=== PATIENT | female | born 1950 | race Two or more races ===

== ENCOUNTER 2019-05-12 01:57 | Inpatient (IN) | payer OTHER, MEDICAID ==
[~2019-05-12] VITALS: Ht 154.9 cm; Wt 52.2 kg
[2019-05-12] MEDS ORDERED: ACETAMINOPHEN 500 MG TABLET PO ONE (02:30)
[2019-05-12] MEDS ORDERED: IV NORMAL SALINE 1000ML BAG 1,000 ML IV ONE (02:30)
[2019-05-12 02:47] LABS: BASO % 0 % (0-3); EOS # 0.2 x10^3/uL (0.0-0.7); EOS % 3 % (0-3); HEMATOCRIT 34.3 % (36.0-47.0); HEMOGLOBIN 11.5 g/dL (12.0-15.5); LYMPH # 1.6 x10^3/uL (1.0-4.8); LYMPH % 34 % (24-48); MEAN CORPUSCULAR HEMOGLOBIN 32 pg (25-35); MEAN CORPUSCULAR HGB CONC 33 g/dL (31-37); MEAN CORPUSCULAR VOLUME 94 fL (79-100); MONO # 0.1 x10^3/uL (0.0-1.1); MONO % 2 % (0-9); NEUT # 2.8 x10^3/uL (1.8-7.7); NEUT % 60 % (31-73); PLATELET COUNT 192 x10^3/uL (140-400); RED BLOOD COUNT 3.64 x10^6/uL (3.50-5.40); RED CELL DISTRIBUTION WIDTH 13.4 % (11.5-14.5); WHITE BLOOD COUNT 4.7 x10^3/uL (4.0-11.0)
[2019-05-12 02:57] LABS: BILIRUBIN,URINE NEGATIVE (NEG); CLARITY,URINE CLEAR; COLOR,URINE YELLOW; NITRITE,URINE NEGATIVE (NEG); PROTEIN,URINE NEGATIVE (NEG-TRACE); UROBILINOGEN,URINE 0.2 mg/dL (0.2 mg/dL)
[2019-05-12 02:59] LABS: PROTHROMBIN TIME PATIENT 13.5 SEC (11.7-14.0)
[2019-05-12 03:06] LABS: CALCIUM 8.8 mg/dL (8.5-10.1); CREATININE 0.9 mg/dL (0.6-1.0); GFR 61.9; POTASSIUM 3.8 mmol/L (3.5-5.1)
--- NOTE | 2019-05-12 03:17 | PHYS DOC ---
Past Medical History Past Medical History: No Pertinent History, UTI Past Surgical History: No Surgical History Additional Information: Nonsmoker Alcohol Use: None Drug Use: None Adult General Chief Complaint Chief Complaint: CHEST PAIN HPI HPI 69-year-old female presents with report of left flank pain and left sided chest pain with associated dizziness and chills �2 hours. Reports history of recent antibiotics for urinary tract infection. Patient also reports some nonproductive cough. Denies known trauma. Denies nausea or vomiting. Review of Systems Review of Systems Constitutional: Denies fever or chills Eyes: Denies redness or eye pain HENT: Denies nasal congestion or sore throat Respiratory: Denies cough or shortness of breath Cardiovascular: Reports chest pain; denies palpitations GI: Denies abdominal pain, nausea, or vomiting : Denies dysuria or hematuria Musculoskeletal: Reports left flank pain; denies joint pain Integument: Denies rash or skin lesions Neurologic: Denies headache, focal weakness or sensory changes Complete systems were reviewed and found to be within normal limits, except as documented in this note. Current Medications Current Medications Current Medications Medications (Trade) Dose Ordered Sig/Carmina Start Time Stop Time Status Last Admin Dose Admin Acetaminophen (Tylenol) 500 mg 1X ONCE 05/12/19 02:30 05/12/19 02:32 DC 05/12/19 02:47 500 MG Sodium Chloride 1,000 ml @ 1,000 mls/hr 1X ONCE 05/12/19 02:30 05/12/19 03:29 DC 05/12/19 02:47 1,000 MLS/HR Allergies Allergies Allergies Coded Allergies Type Severity Reaction Last Updated Verified Penicillins Allergy Unknown 05/12/19 Yes Physical Exam Physical Exam Constitutional: Well developed, well nourished, no acute distress, non-toxic appearance HENT: Normocephalic, atraumatic, oropharynx moist Eyes: Conjunctiva normal, no discharge Neck: Normal range of motion, no tenderness, supple Cardiovascular: Heart rate normal, regular rhythm Lungs & Thorax: Bilateral breath sounds clear to auscultation, no wheezing Abdomen: Soft, no tenderness Skin: Warm, dry, no erythema, no rash Back: No tenderness, left CVA tenderness Extremities: No tenderness, ROM intact, no edema Neurologic: Alert and oriented X 3, no focal deficits noted Psychologic: Affect normal, judgement normal Current Patient Data Vital Signs Vital Signs Date Time Temp Pulse Resp B/P (MAP) Pulse Ox O2 Delivery O2 Flow Rate FiO2 05/12/19 03:03 97 18 142/62 (88) 95 Room Air 05/12/19 01:58 101.4 101.4 Lab Values Laboratory Tests Test 05/12/19 02:15 05/12/19 02:50 White Blood Count 4.7 x10^3/uL (4.0-11.0) Red Blood Count 3.64 x10^6/uL (3.50-5.40) Hemoglobin 11.5 g/dL (12.0-15.5) L Hematocrit 34.3 % (36.0-47.0) L Mean Corpuscular Volume 94 fL (79-100) Mean Corpuscular Hemoglobin 32 pg (25-35) Mean Corpuscular Hemoglobin Concent 33 g/dL (31-37) Red Cell Distribution Width 13.4 % (11.5-14.5) Platelet Count 192 x10^3/uL (140-400) Neutrophils (%) (Auto) 60 % (31-73) Lymphocytes (%) (Auto) 34 % (24-48) Monocytes (%) (Auto) 2 % (0-9) Eosinophils (%) (Auto) 3 % (0-3) Basophils (%) (Auto) 0 % (0-3) Neutrophils # (Auto) 2.8 x10^3/uL (1.8-7.7) Lymphocytes # (Auto) 1.6 x10^3/uL (1.0-4.8) Monocytes # (Auto) 0.1 x10^3/uL (0.0-1.1) Eosinophils # (Auto) 0.2 x10^3/uL (0.0-0.7) Basophils # (Auto) 0.0 x10^3/uL (0.0-0.2) Prothrombin Time 13.5 SEC (11.7-14.0) Prothrombin Time INR 1.1 (0.8-1.1) PTT 28 SEC (24-38) Sodium Level 142 mmol/L (136-145) Potassium Level 3.8 mmol/L (3.5-5.1) Chloride Level 106 mmol/L (98-107) Carbon Dioxide Level 24 mmol/L (21-32) Anion Gap 12 (6-14) Blood Urea Nitrogen 20 mg/dL (7-20) Creatinine 0.9 mg/dL (0.6-1.0) Estimated GFR (Cockcroft-Gault) 61.9 BUN/Creatinine Ratio 22 (6-20) H Glucose Level 99 mg/dL (70-99) Lactic Acid Level 1.6 mmol/L (0.4-2.0) Calcium Level 8.8 mg/dL (8.5-10.1) Magnesium Level 1.7 mg/dL (1.8-2.4) L Total Bilirubin 0.4 mg/dL (0.2-1.0) Aspartate Amino Transferase (AST) 19 U/L (15-37) Alanine Aminotransferase (ALT) 20 U/L (14-59) Alkaline Phosphatase 63 U/L (46-116) Creatine Kinase 119 U/L (26-192) Creatine Kinase MB (Mass) 1.5 ng/mL (0.0-3.6) Creatine Kinase MB Relative Index 1.3 % (0-4) Troponin I Quantitative < 0.017 ng/mL (0.000-0.055) VM-Lmw-H-Type Natriuretic Peptide 238 pg/mL (0-124) H Total Protein 6.5 g/dL (6.4-8.2) Albumin 3.5 g/dL (3.4-5.0) Albumin/Globulin Ratio 1.2 (1.0-1.7) Lipase 116 U/L (73-393) Urine Collection Type Unknown Urine Color Yellow Urine Clarity Clear Urine pH 5.0 Urine Specific [place] 1.015 Urine Protein Negative mg/dL (NEG-TRACE) Urine Glucose (UA) Negative mg/dL (NEG) Urine Ketones (Stick) Negative mg/dL (NEG) Urine Blood Negative (NEG) Urine Nitrite Negative (NEG) Urine Bilirubin Negative (NEG) Urine Urobilinogen Dipstick 0.2 mg/dL (0.2 mg/dL) Urine Leukocyte Esterase Moderate (NEG) Urine RBC 0 /HPF (0-2) Urine WBC >40 /HPF (0-4) Urine Squamous Epithelial Cells Occ /LPF Urine Bacteria Many /HPF (0-FEW) Urine Mucus Slight /LPF Laboratory Tests 05/12/19 02:15 Laboratory Tests 05/12/19 02:15 Microbiology 05/12/19 Blood Culture - Final, Complete 05/12/19 Blood Culture Result 1 (DENISE) - Final, Complete 05/12/19 Antimicrobic Susceptibility - Final, Complete 05/12/19 Urine Culture - Final, Complete 05/12/19 Urine Culture Result 1 (DENISE) - Final, Complete 05/12/19 Antimicrobic Susceptibility - Final, Complete EKG EKG @0206 Sinus tachycardia 109bpm, baseline artifact Radiology/Procedures Radiology/Procedures PROCEDURE: PORTABLE CHEST 1V PORTABLE CHEST 1V Clinical Indication: Weakness, fever. Comparison: Two-view chest April 14, 2019. Findings: The cardiomediastinal silhouette is normal. Lungs are clear. There is no pneumothorax. No pleural effusion is appreciated. No acute bone abnormality. IMPRESSION: No acute cardiopulmonary process. Electronically signed by: Gopal Florentino MD (05/12/2019 3:34 AM) [facility] PROCEDURE: CT ABDOMEN PELVIS WO CONTRAST PQRS Compliance Statement: One or more of the following individualized dose reduction techniques were utilized for this examination: 1. Automated exposure control 2. Adjustment of the mA and/or kV according to patient size 3. Use of iterative reconstruction technique CT ABDOMEN PELVIS WO CONTRAST Clinical Indication: Left flank pain. Comparison: None. Technique: Helical CT imaging of the abdomen and pelvis is performed without IV or oral contrast. Findings: Evaluation of solid organs and bowel is limited without oral and IV contrast, decreasing sensitivity for detection of pathology. Mild atelectasis or scarring in the bilateral lower lobes. Tiny calcified granuloma left lower lobe. Cardiac size is normal. The liver, gallbladder, spleen, pancreas, adrenal glands, and abdominal aorta are normal. There is a right renal cyst that measures up to 5.8 cm. There is a cyst of the upper pole of the left kidney measuring up to 5.2 cm. There is probable cortical scarring in the upper pole of the right kidney. There is no right hydronephrosis. There is mild left hydroureteronephrosis. A ureteral calculus is not identified. Please note noncontrast CT is not sensitive for evaluation of pyelonephritis. Stomach unremarkable. No dilated small bowel. The appendix is normal. Scattered stool in the colon. There is no colon wall thickening. There is no abdominal adenopathy or free fluid. Urinary bladder is normal. Uterus and ovaries unremarkable. No pelvic free fluid. Mild grade 1 anterolisthesis of L4 and L5. IMPRESSION: 1. Mild left hydroureteronephrosis. A ureteral calculus is not identified. Considerations include recently passed calculus, a non-radiopaque calculus, or ascending urinary tract infection. 2. Bilateral renal cysts. Electronically signed by: Gopal Florentino MD (05/12/2019 3:15 AM) [facility] Course & Med Decision Making Course & Med Decision Making Pertinent Labs and Imaging studies reviewed. (See chart for details) Patient presents with left flank pain with radiation to chest and associated dizziness and chills. Patient with history of recent UTI for which she was treated with antibiotics. UA with signs of infection. EKG stable. Labs obtained and posted to chart. Troponin within normal limits. CT abdomen/pelvis with fin dings of hydronephrosis without obstructive stone appreciated. Concern for pyelonephritis. Empiric antibiotics initiated. Chest x-ray without acute process. Magnesium replaced. Patient requiring admission for further evaluation and treatment. Discussed with Dr. Grewal (covering for PCP- Dr. Ho) who is in agreement with admission. Discussed findings and plan with patient and family, who acknowledge understanding and agreement. Dragon Disclaimer Dragon Disclaimer This electronic medical record was generated, in whole or in part, using a voice recognition dictation system. Departure Departure Impression: Primary Impression: Pyelonephritis Additional Impressions: Failure of outpatient treatment Hypomagnesemia Disposition: ADMITTED INPATIENT Admitting Physician: Dulce Grewal (covering for Dr. Ho) Condition: STABLE Referrals: NELIA HO MD (PCP) Problem Qualifiers NELIA TREVIZO DO May 12, 2019 03:17
[2019-05-12 03:18] LABS: ALBUMIN 3.5 g/dL (3.4-5.0); ALBUMIN/GLOBULIN RATIO 1.2 (1.0-1.7); MAGNESIUM 1.7 mg/dL (1.8-2.4); TOTAL BILIRUBIN 0.4 mg/dL (0.2-1.0); TOTAL PROTEIN 6.5 g/dL (6.4-8.2)
[2019-05-12 03:20] LABS: BACTERIA,URINE MANY /HPF (0-FEW); RBC,URINE 0 /HPF (0-2); SQUAMOUS EPITHELIAL CELL,UR OCC /LPF; WBC,URINE >40 /HPF (0-4)
[2019-05-12] MEDS ORDERED: cefTRIAXone IV Push 1 GM VIAL. IVP ONE (03:30)
[2019-05-12] MEDS ORDERED: fentaNYL PF VIAL 100 MCG/2 ML VIAL IV ONE (03:30)
--- NOTE | 2019-05-12 03:37 | RAD ---
PORTABLE CHEST 1V Clinical Indication: Weakness, fever. Comparison: Two-view chest April 14, 2019. Findings: The cardiomediastinal silhouette is normal. Lungs are clear. There is no pneumothorax. No pleural effusion is appreciated. No acute bone abnormality. IMPRESSION: No acute cardiopulmonary process. Electronically signed by: Gopal Florentino MD (05/12/2019 3:34 AM) [facility]
[2019-05-12] MEDS ORDERED: ONDANSETRON PF 4 MG/2 ML VIAL. IV PRN (03:45)
[2019-05-12] MEDS ORDERED: MAGNESIUM SULFATE 2GM 50 ML IV ONE (04:15)
[2019-05-12] MEDS: fentaNYL PF VIAL 100 MCG/2 ML VIAL IV PRN ×2 (06:17→17:51)
--- NOTE | 2019-05-12 06:53 | EKG ---
[facility] [address] [place] [address] Test Date: 2019-05-12 Test Time: 02:06:49 Pat Name: GISELLA KELLEY Department: Room: Gender: F Shift [employer]: : 1950 Requested By: NELIA TREVIZO Order Number: [id number] Reading MD: Measurements Intervals [place] Rate: 109 P: 35 [place]: 176 QRS: -14 QRSD: 80 T: 38 QT: 322 QTc: 435 Interpretive Statements SINUS TACHYCARDIA LEFTWARD AXIS OTHERWISE NORMAL ECG No previous ECG available for comparison
[2019-05-12 07:00] VITALS: BP 98/44
--- NOTE | 2019-05-12 09:58 | PDOC1 ---
History and Physical Date of Admission Date of Admission 05/12/19 Identification/Chief Complaint Chief Complaint flank pain, fever, dysuria Source Source: Caregiver, Chart review, Patient History of Present Illness History of Present Illness She was in the office 05/02 and left a UA and started on Bactrim DS which she finished but came to ER with left flank pain/chest pain and admitted for IV antibiotics and treatment of pyelonephritis. She also complains of a tension type headache and she was in the office the end of March with bronchitis/sinusitis and had a normal CXR then and was treated with doxycycline and prednisone but she is not taking any routine meds Past Medical History Cardiovascular: No pertinent hx Pulmonary: No pertinent hx GI: GERD Heme/Onc: No pertinent hx Hepatobiliary: No pertinent hx Psych: No pertinent hx Rheumatologic: Other (sacroiliitis) Infectious disease: Other ENT: No pertinent hx, Sincusitis Renal/: No pertinent hx Endocrine: No pertinent hx Dermatology: No pertinent hx Grav: 2 Para: 2 Past Surgical History Past Surgical History: No pertinent history Family History Family History: Parent (both are ) Social History Smoke: No ALCOHOL: none Drugs: None Current Problem List Problem List Problems Medical Problems: (1) Hypomagnesemia Status: Acute (2) Pyelonephritis Status: Acute Current Medications Current Medications Current Medications Medications (Trade) Dose Ordered Sig/Carmina Start Time Stop Time Status Last Admin Dose Admin Acetaminophen (Tylenol) 650 mg PRN Q4HRS PRN 05/12/19 03:45 05/13/19 03:44 Ceftriaxone Sodium (Rocephin) 1 gm 1X ONCE 05/12/19 03:30 05/12/19 03:31 DC 05/12/19 03:45 1 GM Fentanyl Citrate (Fentanyl 2ml Vial) 50 mcg PRN Q2HR PRN 05/12/19 03:45 05/12/19 06:17 50 MCG Magnesium Sulfate 50 ml @ 25 mls/hr 1X ONCE 05/12/19 04:15 05/12/19 06:14 DC 05/12/19 06:16 25 MLS/HR Ondansetron HCl (Zofran) 4 mg PRN Q8HRS PRN 05/12/19 03:45 05/13/19 03:44 Sodium Chloride 1,000 ml @ 1,000 mls/hr 1X ONCE 05/12/19 02:30 05/12/19 03:29 DC 05/12/19 02:47 1,000 MLS/HR Allergies Allergies Allergies Coded Allergies Type Severity Reaction Last Updated Verified Penicillins Allergy Unknown 05/12/19 Yes ROS Review of System CONSTITUTIONAL: No fever or chills HEENT: Hx of recent sinobronchitis SKIN: No rash or itching CARDIOVASCULAR: No chest pain, syncope, palpitations, or edema RESPIRATORY: No SOB or cough GASTROINTESTINAL: No nausea, vomiting or abdominal pain, hx of GERD NEUROLOGICAL: band like tension type headache, no focal weakness ENDOCRINE: No cold or heat intolerance GENITOURINARY: see HPI MUSCULOSKELETAL: No back pain or joint pain LYMPHATICS: No enlarged lymph nodes PSYCHIATRIC: No anxiety or depression Physical Exam Physical Exam GEN.: uncomfortable from headache. Alert and oriented. HEENT: Head is normocephalic, atraumatic, no sinus tenderness NECK: Supple. LUNGS: Clear to auscultation, no cough. HEART: RRR, S1, S2 present. Peripheral pulses intact ABDOMEN: Soft, nontender. Positive bowel sounds. : Left flank tenderness, no suprapubic tenderness EXTREMITIES: Without any cyanosis. NEUROLOGIC: Normal speech, normal tone PSYCHIATRIC: Normal affect, normal mood. SKIN: No ulcerations Vitals Vitals Vital Signs Date Time Temp Pulse Resp B/P (MAP) Pulse Ox O2 Delivery O2 Flow Rate FiO2 05/12/19 07:00 98.2 86 18 98/44 (62) 96 Room Air 98.2 Labs Labs Laboratory Tests Test 05/12/19 02:15 05/12/19 02:50 White Blood Count 4.7 x10^3/uL (4.0-11.0) Red Blood Count 3.64 x10^6/uL (3.50-5.40) Hemoglobin 11.5 g/dL (12.0-15.5) Hematocrit 34.3 % (36.0-47.0) Mean Corpuscular Volume 94 fL (79-100) Mean Corpuscular Hemoglobin 32 pg (25-35) Mean Corpuscular Hemoglobin Concent 33 g/dL (31-37) Red Cell Distribution Width 13.4 % (11.5-14.5) Platelet Count 192 x10^3/uL (140-400) Neutrophils (%) (Auto) 60 % (31-73) Lymphocytes (%) (Auto) 34 % (24-48) Monocytes (%) (Auto) 2 % (0-9) Eosinophils (%) (Auto) 3 % (0-3) Basophils (%) (Auto) 0 % (0-3) Neutrophils # (Auto) 2.8 x10^3/uL (1.8-7.7) Lymphocytes # (Auto) 1.6 x10^3/uL (1.0-4.8) Monocytes # (Auto) 0.1 x10^3/uL (0.0-1.1) Eosinophils # (Auto) 0.2 x10^3/uL (0.0-0.7) Basophils # (Auto) 0.0 x10^3/uL (0.0-0.2) Prothrombin Time 13.5 SEC (11.7-14.0) Prothromb Time International Ratio 1.1 (0.8-1.1) Activated Partial Thromboplast Time 28 SEC (24-38) Sodium Level 142 mmol/L (136-145) Potassium Level 3.8 mmol/L (3.5-5.1) Chloride Level 106 mmol/L (98-107) Carbon Dioxide Level 24 mmol/L (21-32) Anion Gap 12 (6-14) Blood Urea Nitrogen 20 mg/dL (7-20) Creatinine 0.9 mg/dL (0.6-1.0) Estimated GFR (Cockcroft-Gault) 61.9 BUN/Creatinine Ratio 22 (6-20) Glucose Level 99 mg/dL (70-99) Lactic Acid Level 1.6 mmol/L (0.4-2.0) Calcium Level 8.8 mg/dL (8.5-10.1) Magnesium Level 1.7 mg/dL (1.8-2.4) Total Bilirubin 0.4 mg/dL (0.2-1.0) Aspartate Amino Transf (AST/SGOT) 19 U/L (15-37) Alanine Aminotransferase (ALT/SGPT) 20 U/L (14-59) Alkaline Phosphatase 63 U/L (46-116) Creatine Kinase 119 U/L (26-192) Creatine Kinase MB (Mass) 1.5 ng/mL (0.0-3.6) Creatine Kinase MB Relative Index 1.3 % (0-4) Troponin I Quantitative < 0.017 ng/mL (0.000-0.055) XK-Zla-B-Type Natriuretic Peptide 238 pg/mL (0-124) Total Protein 6.5 g/dL (6.4-8.2) Albumin 3.5 g/dL (3.4-5.0) Albumin/Globulin Ratio 1.2 (1.0-1.7) Lipase 116 U/L (73-393) Urine Collection Type Unknown Urine Color Yellow Urine Clarity Clear Urine pH 5.0 Urine Specific [place] 1.015 Urine Protein Negative mg/dL (NEG-TRACE) Urine Glucose (UA) Negative mg/dL (NEG) Urine Ketones (Stick) Negative mg/dL (NEG) Urine Blood Negative (NEG) Urine Nitrite Negative (NEG) Urine Bilirubin Negative (NEG) Urine Urobilinogen Dipstick 0.2 mg/dL (0.2 mg/dL) Urine Leukocyte Esterase Moderate (NEG) Urine RBC 0 /HPF (0-2) Urine WBC >40 /HPF (0-4) Urine Squamous Epithelial Cells Occ /LPF Urine Bacteria Many /HPF (0-FEW) Urine Mucus Slight /LPF Laboratory Tests Test 05/12/19 02:15 05/12/19 02:50 White Blood Count 4.7 x10^3/uL (4.0-11.0) Red Blood Count 3.64 x10^6/uL (3.50-5.40) Hemoglobin 11.5 g/dL (12.0-15.5) Hematocrit 34.3 % (36.0-47.0) Mean Corpuscular Volume 94 fL (79-100) Mean Corpuscular Hemoglobin 32 pg (25-35) Mean Corpuscular Hemoglobin Concent 33 g/dL (31-37) Red Cell Distribution Width 13.4 % (11.5-14.5) Platelet Count 192 x10^3/uL (140-400) Neutrophils (%) (Auto) 60 % (31-73) Lymphocytes (%) (Auto) 34 % (24-48) Monocytes (%) (Auto) 2 % (0-9) Eosinophils (%) (Auto) 3 % (0-3) Basophils (%) (Auto) 0 % (0-3) Neutrophils # (Auto) 2.8 x10^3/uL (1.8-7.7) Lymphocytes # (Auto) 1.6 x10^3/uL (1.0-4.8) Monocytes # (Auto) 0.1 x10^3/uL (0.0-1.1) Eosinophils # (Auto) 0.2 x10^3/uL (0.0-0.7) Basophils # (Auto) 0.0 x10^3/uL (0.0-0.2) Prothrombin Time 13.5 SEC (11.7-14.0) Prothromb Time International Ratio 1.1 (0.8-1.1) Activated Partial Thromboplast Time 28 SEC (24-38) Sodium Level 142 mmol/L (136-145) Potassium Level 3.8 mmol/L (3.5-5.1) Chloride Level 106 mmol/L (98-107) Carbon Dioxide Level 24 mmol/L (21-32) Anion Gap 12 (6-14) Blood Urea Nitrogen 20 mg/dL (7-20) Creatinine 0.9 mg/dL (0.6-1.0) Estimated GFR (Cockcroft-Gault) 61.9 BUN/Creatinine Ratio 22 (6-20) Glucose Level 99 mg/dL (70-99) Lactic Acid Level 1.6 mmol/L (0.4-2.0) Calcium Level 8.8 mg/dL (8.5-10.1) Magnesium Level 1.7 mg/dL (1.8-2.4) Total Bilirubin 0.4 mg/dL (0.2-1.0) Aspartate Amino Transf (AST/SGOT) 19 U/L (15-37) Alanine Aminotransferase (ALT/SGPT) 20 U/L (14-59) Alkaline Phosphatase 63 U/L (46-116) Creatine Kinase 119 U/L (26-192) Creatine Kinase MB (Mass) 1.5 ng/mL (0.0-3.6) Creatine Kinase MB Relative Index 1.3 % (0-4) Troponin I Quantitative < 0.017 ng/mL (0.000-0.055) UA-Aws-N-Type Natriuretic Peptide 238 pg/mL (0-124) Total Protein 6.5 g/dL (6.4-8.2) Albumin 3.5 g/dL (3.4-5.0) Albumin/Globulin Ratio 1.2 (1.0-1.7) Lipase 116 U/L (73-393) Urine Collection Type Unknown Urine Color Yellow Urine Clarity Clear Urine pH 5.0 Urine Specific [place] 1.015 Urine Protein Negative mg/dL (NEG-TRACE) Urine Glucose (UA) Negative mg/dL (NEG) Urine Ketones (Stick) Negative mg/dL (NEG) Urine Blood Negative (NEG) Urine Nitrite Negative (NEG) Urine Bilirubin Negative (NEG) Urine Urobilinogen Dipstick 0.2 mg/dL (0.2 mg/dL) Urine Leukocyte Esterase Moderate (NEG) Urine RBC 0 /HPF (0-2) Urine WBC >40 /HPF (0-4) Urine Squamous Epithelial Cells Occ /LPF Urine Bacteria Many /HPF (0-FEW) Urine Mucus Slight /LPF Images Images CT ABDOMEN PELVIS WO CONTRAST Clinical Indication: Left flank pain. Comparison: None. Technique: Helical CT imaging of the abdomen and pelvis is performed without IV or oral contrast. Findings: Evaluation of solid organs and bowel is limited without oral and IV contrast, decreasing sensitivity for detection of pathology. Mild atelectasis or scarring in the bilateral lower lobes. Tiny calcified granuloma left lower lobe. Cardiac size is normal. The liver, gallbladder, spleen, pancreas, adrenal glands, and abdominal aorta are normal. There is a right renal cyst that measures up to 5.8 cm. There is a cyst of the upper pole of the left kidney measuring up to 5.2 cm. There is probable cortical scarring in the upper pole of the right kidney. There is no right hydronephrosis. There is mild left hydroureteronephrosis. A ureteral calculus is not identified. Please note noncontrast CT is not sensitive for evaluation of pyelonephritis. Stomach unremarkable. No dilated small bowel. The appendix is normal. Scattered stool in the colon. There is no colon wall thickening. There is no abdominal adenopathy or free fluid. Urinary bladder is normal. Uterus and ovaries unremarkable. No pelvic free fluid. Mild grade 1 anterolisthesis of L4 and L5. IMPRESSION: 1. Mild left hydroureteronephrosis. A ureteral calculus is not identified. Considerations include recently passed calculus, a non-radiopaque calculus, or ascending urinary tract infection. 2. Bilateral renal cysts. VTE Prophylaxis Ordered VTE Prophylaxis Devices: No VTE Pharmacological Prophylaxi: Yes (lovenox) Assessment/Plan Assessment/Plan Left pyelonephritis, possible aggravated by recent stone passage but her symptoms not consistent with stone passage. She has recently been treated as OP for sinobronchitis with doxycycline and for a UTI with Bactrim DS but no culture done. Start Rocephin IV and monitor , she may need ID consult if doesn't improve. Sepsis - she was febrile, tacycardic and tachypneic in ER but her WBC is normal Tension headache - symptomatic tx hx of GERD - not currently on meds DVT prophylaxis - Cori Mcguire MD May 12, 2019 09:58
[2019-05-12] MEDS ORDERED: CYCLOBENZAPRINE 10 MG TABLET. PO PRN (10:00)
[2019-05-12] MEDS: ACETAMINOPHEN 325 MG TABLET. PO PRN ×2 (10:38→22:09)
[2019-05-12 11:00] VITALS: BP 106/52
--- NOTE | 2019-05-12 11:31 | NUR ---
SS following for discharge planning. SS reviewed pt chart. Pt is from home with spouse and is currently on room air. No discharge needs noted at this time. SS will continue to follow for discharge planning.
[2019-05-12] MEDS ORDERED: traMADol 50 MG TABLET PO PRN (14:00)
[2019-05-12] MEDS: ENOXAPARIN 40 MG/0.4 ML SYRINGE. SQ SCH (14:57)
[2019-05-12 15:00] VITALS: BP 112/56
[2019-05-12 19:00] VITALS: BP 124/63
[2019-05-12 23:00] VITALS: BP 125/51
[2019-05-13 03:00] VITALS: BP 103/50
[2019-05-13] MEDS: cefTRIAXone IV Push 1 GM VIAL. IVP SCH (07:54)
[2019-05-13] MEDS: IBUPROFEN 200 MG TABLET. PO PRN ×2 (07:55→16:39)
[2019-05-13 07:59] VITALS: BP 99/69
[2019-05-13 11:59] VITALS: BP 102/51
--- NOTE | 2019-05-13 13:58 | PDOC ---
PROGRESS NOTES Subjective Subjective Patient without complaint, headache has resolved. Objective Objective Vital Signs Date Time Temp Pulse Resp B/P (MAP) Pulse Ox O2 Delivery O2 Flow Rate FiO2 05/13/19 11:59 98.3 70 18 102/51 (68) 96 Room Air 98.3 Intake and Output 05/13/19 07:00 Intake Total 1350 ml Balance 1350 ml Intake Oral 1350 ml # Voids 23 Physical Exam Abdomen: Normal bowel sounds, Soft, No tenderness Heart: Regular rate Extremities: No edema General: Alert, Oriented X3, No acute distress Lungs: Clear to auscultation Assessment Assessment Problems Medical Problems: (1) Hypomagnesemia Status: Acute (2) Pyelonephritis Status: Acute Plan Plan of Care 1. Acute pyelonephritis with bacteremia - stable, Tm 100.4. Continue Levaquin and Rocephin, await blood and urine culture results. Patient is comfortable now. 2. headache - resolved. Patient has several prn meds available. Comment Review of Relevant I have reviewed the following items yoselin (where applicable) has been applied. Labs Laboratory Tests Test 05/12/19 02:15 05/12/19 02:50 White Blood Count 4.7 x10^3/uL (4.0-11.0) Red Blood Count 3.64 x10^6/uL (3.50-5.40) Hemoglobin 11.5 g/dL (12.0-15.5) Hematocrit 34.3 % (36.0-47.0) Mean Corpuscular Volume 94 fL (79-100) Mean Corpuscular Hemoglobin 32 pg (25-35) Mean Corpuscular Hemoglobin Concent 33 g/dL (31-37) Red Cell Distribution Width 13.4 % (11.5-14.5) Platelet Count 192 x10^3/uL (140-400) Neutrophils (%) (Auto) 60 % (31-73) Lymphocytes (%) (Auto) 34 % (24-48) Monocytes (%) (Auto) 2 % (0-9) Eosinophils (%) (Auto) 3 % (0-3) Basophils (%) (Auto) 0 % (0-3) Neutrophils # (Auto) 2.8 x10^3/uL (1.8-7.7) Lymphocytes # (Auto) 1.6 x10^3/uL (1.0-4.8) Monocytes # (Auto) 0.1 x10^3/uL (0.0-1.1) Eosinophils # (Auto) 0.2 x10^3/uL (0.0-0.7) Basophils # (Auto) 0.0 x10^3/uL (0.0-0.2) Prothrombin Time 13.5 SEC (11.7-14.0) Prothromb Time International Ratio 1.1 (0.8-1.1) Activated Partial Thromboplast Time 28 SEC (24-38) Sodium Level 142 mmol/L (136-145) Potassium Level 3.8 mmol/L (3.5-5.1) Chloride Level 106 mmol/L (98-107) Carbon Dioxide Level 24 mmol/L (21-32) Anion Gap 12 (6-14) Blood Urea Nitrogen 20 mg/dL (7-20) Creatinine 0.9 mg/dL (0.6-1.0) Estimated GFR (Cockcroft-Gault) 61.9 BUN/Creatinine Ratio 22 (6-20) Glucose Level 99 mg/dL (70-99) Lactic Acid Level 1.6 mmol/L (0.4-2.0) Calcium Level 8.8 mg/dL (8.5-10.1) Magnesium Level 1.7 mg/dL (1.8-2.4) Total Bilirubin 0.4 mg/dL (0.2-1.0) Aspartate Amino Transf (AST/SGOT) 19 U/L (15-37) Alanine Aminotransferase (ALT/SGPT) 20 U/L (14-59) Alkaline Phosphatase 63 U/L (46-116) Creatine Kinase 119 U/L (26-192) Creatine Kinase MB (Mass) 1.5 ng/mL (0.0-3.6) Creatine Kinase MB Relative Index 1.3 % (0-4) Troponin I Quantitative < 0.017 ng/mL (0.000-0.055) YZ-Vli-Q-Type Natriuretic Peptide 238 pg/mL (0-124) Total Protein 6.5 g/dL (6.4-8.2) Albumin 3.5 g/dL (3.4-5.0) Albumin/Globulin Ratio 1.2 (1.0-1.7) Lipase 116 U/L (73-393) Urine Collection Type Unknown Urine Color Yellow Urine Clarity Clear Urine pH 5.0 Urine Specific Dent 1.015 Urine Protein Negative mg/dL (NEG-TRACE) Urine Glucose (UA) Negative mg/dL (NEG) Urine Ketones (Stick) Negative mg/dL (NEG) Urine Blood Negative (NEG) Urine Nitrite Negative (NEG) Urine Bilirubin Negative (NEG) Urine Urobilinogen Dipstick 0.2 mg/dL (0.2 mg/dL) Urine Leukocyte Esterase Moderate (NEG) Urine RBC 0 /HPF (0-2) Urine WBC >40 /HPF (0-4) Urine Squamous Epithelial Cells Occ /LPF Urine Bacteria Many /HPF (0-FEW) Urine Mucus Slight /LPF Microbiology 05/12/19 Blood Culture - Final, Complete Medications Current Medications Sodium Chloride 1,000 ml @ 1,000 mls/hr 1X ONCE IV Last administered on 05/12/19at 02:47; Start 05/12/19 at 02:30; Stop 05/12/19 at 03:29; Status DC Acetaminophen (Tylenol) 500 mg 1X ONCE PO Last administered on 05/12/19at 02:47; Start 05/12/19 at 02:30; Stop 05/12/19 at 02:32; Status DC Ceftriaxone Sodium (Rocephin) 1 gm 1X ONCE IVP Last administered on 05/12/19at 03:45; Start 05/12/19 at 03:30; Stop 05/12/19 at 03:31; Status DC Fentanyl Citrate (Fentanyl 2ml Vial) 50 mcg 1X ONCE IV Last administered on 05/12/19at 03:30; Start 05/12/19 at 03:30; Stop 05/12/19 at 03:31; Status DC Ondansetron HCl (Zofran) 4 mg PRN Q8HRS PRN IV NAUSEA/VOMITING; Start 05/12/19 at 03:45; Stop 05/13/19 at 03:44; Status DC Fentanyl Citrate (Fentanyl 2ml Vial) 50 mcg PRN Q2HR PRN IV PAIN Last administered on 05/12/19at 17:51; Start 05/12/19 at 03:45 Acetaminophen (Tylenol) 650 mg PRN Q4HRS PRN PO FEVER Last administered on 05/12/19at 22:09; Start 05/12/19 at 03:45; Stop 05/13/19 at 03:44; Status DC Magnesium Sulfate 50 ml @ 25 mls/hr 1X ONCE IV Last administered on 05/12/19at 06:16; Start 05/12/19 at 04:15; Stop 05/12/19 at 06:14; Status DC Cyclobenzaprine HCl (Flexeril) 10 mg PRN Q6HRS PRN PO tension headache; Start 05/12/19 at 10:00 Tramadol HCl (Ultram) 50 mg PRN Q6HRS PRN PO PAIN Last administered on 05/12/19at 14:55; Start 05/12/19 at 14:00 Enoxaparin Sodium (Lovenox 40mg Syringe) 40 mg Q24H SQ Last administered on 05/12/19at 14:57; Start 05/12/19 at 15:00 Ceftriaxone Sodium (Rocephin) 1 gm Q24H IVP Last administered on 05/13/19at 07:54; Start 05/13/19 at 08:00 Levofloxacin/ Dextrose 50 ml @ 50 mls/hr Q24H IV Last administered on 05/12/19at 14:56; Start 05/12/19 at 15:00 Ibuprofen (Motrin) 600 mg PRN Q6HRS PRN PO INFLAMMATION Last administered on 05/13/19at 07:55; Start 05/12/19 at 22:30 Vitals/I & O Vital Sign - Last 24 Hours 05/12/19 05/12/19 05/12/19 05/12/19 14:55 15:00 15:55 17:51 Temp 98.4 98.4 Pulse 88 Resp 18 18 16 16 B/P (MAP) 112/56 (74) Pulse Ox 96 96 O2 Delivery Room Air Room Air Room Air Room Air 05/12/19 05/12/19 05/12/19 05/12/19 18:21 19:00 22:00 22:00 Temp 98.4 100.4 98.4 100.4 Pulse 82 Resp 14 18 B/P (MAP) 124/63 (83) Pulse Ox 96 98 O2 Delivery Room Air Room Air Room Air 05/12/19 05/13/19 05/13/19 05/13/19 23:00 01:45 03:00 07:42 Temp 99.3 98.1 99.3 98.1 Pulse 83 76 Resp 18 18 B/P (MAP) 125/51 (75) 103/50 (67) Pulse Ox 92 92 O2 Delivery Room Air Room Air Room Air 05/13/19 05/13/19 07:59 11:59 Temp 98.1 98.3 98.1 98.3 Pulse 85 70 Resp 16 18 B/P (MAP) 99/69 (79) 102/51 (68) Pulse Ox 94 96 O2 Delivery Room Air Room Air Intake and Output 05/12/19 05/12/19 05/13/19 15:00 23:00 07:00 Intake Total 450 ml 500 ml 400 ml Balance 450 ml 500 ml 400 ml SIXTO ROSENTHAL MD May 13, 2019 13:58
[2019-05-13] MEDS ORDERED: ACETAMINOPHEN 500 MG TABLET PO PRN (14:00)
[2019-05-13] MEDS: ENOXAPARIN 40 MG/0.4 ML SYRINGE. SQ SCH (14:52)
[2019-05-13 15:00] VITALS: BP 100/53
[2019-05-13 19:00] VITALS: BP 110/43
[2019-05-13] MEDS: LACTOBACILLUS RHAMNOSUS GG 1 CAPSULE. PO SCH (21:08)
[2019-05-13 22:54] VITALS: BP 117/43
[2019-05-14 03:00] VITALS: BP 126/55
[2019-05-14 07:00] VITALS: BP 131/86
[2019-05-14] MEDS: LACTOBACILLUS RHAMNOSUS GG 1 CAPSULE. PO SCH ×2 (08:29→20:55)
[2019-05-14] MEDS: IBUPROFEN 200 MG TABLET. PO PRN (08:29)
[2019-05-14] MEDS: cefTRIAXone IV Push 1 GM VIAL. IVP SCH (08:30)
--- NOTE | 2019-05-14 10:43 | PDOC ---
PROGRESS NOTES Subjective Subjective Patient reports that posterior headache has returned. Also having some epigastric discomfort from gas. Objective Objective Vital Signs Date Time Temp Pulse Resp B/P (MAP) Pulse Ox O2 Delivery O2 Flow Rate FiO2 05/14/19 08:00 Room Air 05/14/19 07:00 98.9 78 18 131/86 (101) 95 98.9 Intake and Output 05/14/19 06:59 Intake Total 660 ml Output Total 0 ml Balance 660 ml Intake Oral 660 ml Output Urine Total 0 ml # Voids 3 Physical Exam Abdomen: Normal bowel sounds, Soft, No tenderness Heart: Regular rate Extremities: No edema General: Alert, Oriented X3, No acute distress Lungs: Clear to auscultation Assessment Assessment Problems Medical Problems: (1) Hypomagnesemia Status: Acute (2) Pyelonephritis Status: Acute Plan Plan of Care 1. Acute pyelonephritis with bacteremia - preliminary urine culture shows E coli, sensitivities pending. Continue Rocephin and Levaquin. Afebrile now. 2. tension headache - add Flexeril prn. 3. dyspepsia - Mylanta prn ordered. Comment Review of Relevant I have reviewed the following items yoselin (where applicable) has been applied. Labs Microbiology 05/12/19 Blood Culture - Final, Complete 05/12/19 Urine Culture - Preliminary, Resulted 05/12/19 Urine Culture Result 1 (DENISE) - Preliminary, Resulted Medications Current Medications Sodium Chloride 1,000 ml @ 1,000 mls/hr 1X ONCE IV Last administered on 05/12/19at 02:47; Start 05/12/19 at 02:30; Stop 05/12/19 at 03:29; Status DC Acetaminophen (Tylenol) 500 mg 1X ONCE PO Last administered on 05/12/19at 02:47; Start 05/12/19 at 02:30; Stop 05/12/19 at 02:32; Status DC Ceftriaxone Sodium (Rocephin) 1 gm 1X ONCE IVP Last administered on 05/12/19at 03:45; Start 05/12/19 at 03:30; Stop 05/12/19 at 03:31; Status DC Fentanyl Citrate (Fentanyl 2ml Vial) 50 mcg 1X ONCE IV Last administered on 05/12/19at 03:30; Start 05/12/19 at 03:30; Stop 05/12/19 at 03:31; Status DC Ondansetron HCl (Zofran) 4 mg PRN Q8HRS PRN IV NAUSEA/VOMITING; Start 05/12/19 at 03:45; Stop 05/13/19 at 03:44; Status DC Fentanyl Citrate (Fentanyl 2ml Vial) 50 mcg PRN Q2HR PRN IV PAIN Last administered on 05/12/19at 17:51; Start 05/12/19 at 03:45 Acetaminophen (Tylenol) 650 mg PRN Q4HRS PRN PO FEVER Last administered on 05/12/19at 22:09; Start 05/12/19 at 03:45; Stop 05/13/19 at 03:44; Status DC Magnesium Sulfate 50 ml @ 25 mls/hr 1X ONCE IV Last administered on 05/12/19at 06:16; Start 05/12/19 at 04:15; Stop 05/12/19 at 06:14; Status DC Cyclobenzaprine HCl (Flexeril) 10 mg PRN Q6HRS PRN PO tension headache; Start 05/12/19 at 10:00 Tramadol HCl (Ultram) 50 mg PRN Q6HRS PRN PO PAIN Last administered on 05/12/19at 14:55; Start 05/12/19 at 14:00 Enoxaparin Sodium (Lovenox 40mg Syringe) 40 mg Q24H SQ Last administered on 05/13/19at 14:52; Start 05/12/19 at 15:00 Ceftriaxone Sodium (Rocephin) 1 gm Q24H IVP Last administered on 05/14/19at 08: 30; Start 05/13/19 at 08:00 Levofloxacin/ Dextrose 50 ml @ 50 mls/hr Q24H IV Last administered on 05/13/19at 14:52; Start 05/12/19 at 15:00; Stop 05/13/19 at 14:55; Status DC Ibuprofen (Motrin) 600 mg PRN Q6HRS PRN PO INFLAMMATION Last administered on at 08:29; Start 05/12/19 at 22:30 Acetaminophen (Tylenol) 1,000 mg PRN Q6HRS PRN PO HEADACHE/FEVER; Start 05/13/19 at 14:00 Levofloxacin/ Dextrose 150 ml @ 100 mls/hr Q48H IV ; Start 05/14/19 at 10:00 Lactobacillus Rhamnosus (Culturelle) 1 cap BID PO Last administered on 05/14/19at 08:29; Start 05/13/19 at 21:00 Vitals/I & O Vital Sign - Last 24 Hours 05/13/19 05/13/19 05/13/19 05/13/19 11:59 15:00 19:00 22:54 Temp 98.3 98.6 98.5 98.3 98.3 98.6 98.5 98.3 Pulse 70 77 70 71 Resp 18 18 18 18 B/P (MAP) 102/51 (68) 100/53 (69) 110/43 (65) 117/43 (67) Pulse Ox 96 95 95 95 O2 Delivery Room Air Room Air Room Air Room Air 05/14/19 05/14/19 05/14/19 03:00 07:00 08:00 Temp 98.7 98.9 98.7 98.9 Pulse 73 78 Resp 18 18 B/P (MAP) 126/55 (78) 131/86 (101) Pulse Ox 95 95 O2 Delivery Room Air Room Air Room Air Intake and Output 05/13/19 05/13/19 05/14/19 14:59 22:59 06:59 Intake Total 220 ml 440 ml Output Total 0 ml Balance 220 ml 440 ml 0 ml SIXTO ROSENTHAL MD May 14, 2019 10:43
[2019-05-14] MEDS ORDERED: CYCLOBENZAPRINE 10 MG TABLET. PO PRN (10:45)
[2019-05-14] MEDS ORDERED: MAG HYDROX/ALUMINUM HYD/SIMETH 30 ML ORAL.SUSP PO PRN (10:45)
[2019-05-14 10:54] VITALS: BP 128/84
[2019-05-14] MEDS: ENOXAPARIN 40 MG/0.4 ML SYRINGE. SQ SCH (13:53)
[2019-05-14 14:57] VITALS: BP 135/80
[2019-05-14 19:00] VITALS: BP 134/82
[2019-05-14 22:39] VITALS: BP 129/42
[2019-05-15] VITALS (7 sets, daily range): BP systolic 113–134; BP diastolic 40–67
[2019-05-15] MEDS: MEROPENEM 500 MG in IV NORMAL SALINE 50ML 50 ML IV SCH ×6 (00:17→23:36)
--- NOTE | 2019-05-15 08:21 | PDOC ---
PROGRESS NOTES Subjective Subjective Patient without complaint. Headache and dyspepsia have resolved. Objective Objective Vital Signs Date Time Temp Pulse Resp B/P (MAP) Pulse Ox O2 Delivery O2 Flow Rate FiO2 05/15/19 07:00 98.2 71 16 124/62 (82) 94 Room Air 98.2 l Intake and Output 05/15/19 07:00 Intake Total 1220 ml Balance 1220 ml Intake Oral 1220 ml # Voids 5 Physical Exam Abdomen: Normal bowel sounds, Soft, No tenderness Heart: Regular rate Extremities: No edema General: Alert, Oriented X3, No acute distress Lungs: Clear to auscultation Assessment Assessment Problems Medical Problems: (1) Hypomagnesemia Status: Acute (2) Pyelonephritis Status: Acute Plan Plan of Care 1. Acute pyelonephritis with bacteremia - urine culture showed E Coli resistant to multiple medications. Have consulted ID and they started her on Meropenem. Patient asymptomatic now. 2. Headache - resolved. Patient has prn meds available. 3. dyspepsia - resolved at present. Comment Review of Relevant I have reviewed the following items yoselin (where applicable) has been applied. Labs Microbiology 05/12/19 Blood Culture - Preliminary, Resulted 05/12/19 Blood Culture Result 1 (DENISE) - Preliminary, Resulted 05/12/19 Urine Culture - Final, Complete 05/12/19 Urine Culture Result 1 (DENISE) - Final, Complete 05/12/19 Antimicrobic Susceptibility - Final, Complete Medications Current Medications Sodium Chloride 1,000 ml @ 1,000 mls/hr 1X ONCE IV Last administered on 05/12/19at 02:47; Start 05/12/19 at 02:30; Stop 05/12/19 at 03:29; Status DC Acetaminophen (Tylenol) 500 mg 1X ONCE PO Last administered on 05/12/19at 02:47; Start 05/12/19 at 02:30; Stop 05/12/19 at 02:32; Status DC Ceftriaxone Sodium (Rocephin) 1 gm 1X ONCE IVP Last administered on 05/12/19at 03:45; Start 05/12/19 at 03:30; Stop 05/12/19 at 03:31; Status DC Fentanyl Citrate (Fentanyl 2ml Vial) 50 mcg 1X ONCE IV Last administered on 05/12/19at 03:30; Start 05/12/19 at 03:30; Stop 05/12/19 at 03:31; Status DC Ondansetron HCl (Zofran) 4 mg PRN Q8HRS PRN IV NAUSEA/VOMITING; Start 05/12/19 at 03:45; Stop 05/13/19 at 03:44; Status DC Fentanyl Citrate (Fentanyl 2ml Vial) 50 mcg PRN Q2HR PRN IV PAIN Last administered on 05/12/19at 17:51; Start 05/12/19 at 03:45; Stop 05/15/19 at 07:00; Status DC Acetaminophen (Tylenol) 650 mg PRN Q4HRS PRN PO FEVER Last administered on 05/12/19at 22:09; Start 05/12/19 at 03:45; Stop 05/13/19 at 03:44; Status DC Magnesium Sulfate 50 ml @ 25 mls/hr 1X ONCE IV Last administered on 05/12/19at 06:16; Start 05/12/19 at 04:15; Stop 05/12/19 at 06:14; Status DC Cyclobenzaprine HCl (Flexeril) 10 mg PRN Q6HRS PRN PO tension headache; Start 05/12/19 at 10:00 Tramadol HCl (Ultram) 50 mg PRN Q6HRS PRN PO MODERATE PAIN Last administered on 05/12/19at 14:55; Start 05/12/19 at 14:00 Enoxaparin Sodium (Lovenox 40mg Syringe) 40 mg Q24H SQ Last administered on at 13:53; Start 05/12/19 at 15:00 Ceftriaxone Sodium (Rocephin) 1 gm Q24H IVP Last administered on 05/14/19at 08:30; Start 05/13/19 at 08:00; Stop 05/14/19 at 20:23; Status DC Levofloxacin/ Dextrose 50 ml @ 50 mls/hr Q24H IV Last administered on 05/13/19at 14:52; Start 05/12/19 at 15:00; Stop 05/13/19 at 14:55; Status DC Ibuprofen (Motrin) 600 mg PRN Q6HRS PRN PO INFLAMMATION Last administered on 05/14/19at 08:29; Start 05/12/19 at 22:30 Acetaminophen (Tylenol) 1,000 mg PRN Q6HRS PRN PO HEADACHE/FEVER; Start 05/13/19 at 14:00 Levofloxacin/ Dextrose 150 ml @ 100 mls/hr Q48H IV Last administered on 05/14/19at 10:46; Start 05/14/19 at 10:00; Stop 05/14/19 at 20:23; Status DC Lactobacillus Rhamnosus (Culturelle) 1 cap BID PO Last administered on 05/14at 20:55; Start 05/13/19 at 21:00 Cyclobenzaprine HCl (Flexeril) 10 mg PRN Q6HRS PRN PO headache; Start 05/14/19 at 10:45 Al Hydroxide/Mg Hydroxide (Mylanta Plus Xs) 30 ml PRN Q2HR PRN PO HEARTBURN / GAS; Start 05/14/19 at 10:45 Meropenem 500 mg/ Sodium Chloride 50 ml @ 100 mls/hr Q6HRS IV Last administered on 05/15/19at 06:04; Start 05/15/19 at 00:00 Vitals/I & O Vital Sign - Last 24 Hours 05/14/19 05/14/19 05/14/19 05/14/19 10:54 14:57 19:00 22:39 Temp 98.4 98.4 98.0 98.2 98.4 98.4 98.0 98.2 Pulse 76 75 76 72 Resp 18 18 18 18 B/P (MAP) 128/84 (99) 135/80 (98) 134/82 (99) 129/42 (71) Pulse Ox 96 96 96 97 O2 Delivery Room Air Room Air Room Air Room Air 05/15/19 05/15/19 03:00 07:00 Temp 98.0 98.2 98.0 98.2 Pulse 81 71 Resp 18 16 B/P (MAP) 134/64 (87) 124/62 (82) Pulse Ox 96 94 O2 Delivery Room Air Room Air Intake and Output 05/14/19 05/14/19 05/15/19 15:00 23:00 07:00 Intake Total 920 ml 300 ml Balance 920 ml 300 ml SIXTO ROSENTHAL MD May 15, 2019 08:21
[2019-05-15] MEDS: LACTOBACILLUS RHAMNOSUS GG 1 CAPSULE. PO SCH ×2 (08:55→20:28)
--- NOTE | 2019-05-15 09:11 | PDOC ---
Infectious Disease Note Vital Signs: Vital Signs Vital Signs Date Time Temp Pulse Resp B/P (MAP) Pulse Ox O2 Delivery O2 Flow Rate FiO2 05/15/19 07:00 98.2 71 16 124/62 (82) 94 Room Air 98.2 Medications: Inpatient Meds: Current Medications Medications (Trade) Dose Ordered Sig/Carmina Start Time Stop Time Status Last Admin Dose Admin Acetaminophen (Tylenol) 1,000 mg PRN Q6HRS PRN 05/13/19 14:00 Al Hydroxide/Mg Hydroxide (Mylanta Plus Xs) 30 ml PRN Q2HR PRN 05/14/19 10:45 Ceftriaxone Sodium (Rocephin) 1 gm Q24H 05/13/19 08:00 05/14/19 20:23 DC 05/14/19 08:30 1 GM Cyclobenzaprine HCl (Flexeril) 10 mg PRN Q6HRS PRN 05/14/19 10:45 Enoxaparin Sodium (Lovenox 40mg Syringe) 40 mg Q24H 05/12/19 15:00 05/14/19 13:53 40 MG Fentanyl Citrate (Fentanyl 2ml Vial) 50 mcg PRN Q2HR PRN 05/12/19 03:45 05/15/19 07:00 DC 05/12/19 17:51 50 MCG Ibuprofen (Motrin) 600 mg PRN Q6HRS PRN 05/12/19 22:30 05/14/19 08:29 600 MG Lactobacillus Rhamnosus (Culturelle) 1 cap BID 05/13/19 21:00 05/15/19 08:55 1 CAP Levofloxacin/ Dextrose 150 ml @ 100 mls/hr Q48H 05/14/19 10:00 05/14/19 20:23 DC 05/14/19 10:46 100 MLS/HR Magnesium Sulfate 50 ml @ 25 mls/hr 1X ONCE 05/12/19 04:15 05/12/19 06:14 DC 05/12/19 06:16 25 MLS/HR Meropenem 500 mg/ Sodium Chloride 50 ml @ 100 mls/hr Q6HRS 05/15/19 00:00 05/15/19 06:04 100 MLS/HR Ondansetron HCl (Zofran) 4 mg PRN Q8HRS PRN 05/12/19 03:45 05/13/19 03:44 DC Sodium Chloride 1,000 ml @ 1,000 mls/hr 1X ONCE 05/12/19 02:30 05/12/19 03:29 DC 05/12/19 02:47 1,000 MLS/HR Tramadol HCl (Ultram) 50 mg PRN Q6HRS PRN 05/12/19 14:00 05/12/19 14:55 50 MG Objective: Assessment: Pt seen and examined ID consult dictated Gram neg sepsis 05/12 ESBL E Coli uti Obstructive uropathy Fever Plan: Plan of Care merrem labs in [facility] from 05/12 Thank you JULIEN DHILLON MD May 15, 2019 09:11
--- NOTE | 2019-05-15 11:13 | NUR ---
IP: patient has +ESBL in urine, requires contac tprecautions until 2 negative results 7 days apart.
[2019-05-15] MEDS: ENOXAPARIN 40 MG/0.4 ML SYRINGE. SQ SCH (17:13)
--- NOTE | 2019-05-15 18:43 | CONS ---
DATE OF CONSULTATION: 05/15/2019 REFERRING PHYSICIAN: Alecia Ortega MD REASON FOR CONSULTATION: ESBL E. coli UTI. HISTORY OF PRESENT ILLNESS: A 69-year-old female who was admitted on 05/12/2019 when she presented to the ER with complaints of left-sided flank pain and chest pain. She had been treated for urinary tract infection twice with Bactrim double strength for possible UTI. She had normal chest x-ray. White count was normal. She was started on Rocephin and yesterday morning, she was started on Levaquin since she also had blood cultures, which were positive for gram-negative rods. ID and DENISE is pending at this time. Urine culture showed greater than 100,000 E. coli consistent with possible ESBL. ID consult has been requested for antibiotic management. Today, the patient feels a little better. She denies any fever, chills, nausea, vomiting or diarrhea. Flank pain is improving. She denies any hematuria, difficulty passing urine, headache, sore throat, difficulty swallowing, shortness of breath, chest pain, rash, joint pain or shortness of breath with deep breathing. I started her on meropenem last night as I was called in with ESBL E. coli infection. The patient is tolerating it well. History is obtained from the granddaughter at bedside. The patient does answer a few questions in yes and no fashion. PAST MEDICAL HISTORY: GERD, sacroiliitis. PAST SURGICAL HISTORY: None. FAMILY HISTORY: As per HPI. SOCIAL HISTORY: Denies smoking, alcohol, or illicit drug use. CURRENT MEDICATIONS: IV meropenem. The patient was on Levaquin and ceftriaxone before. ALLERGIES: PENICILLIN, UNKNOWN REACTION, though the patient has tolerated ceftriaxone well. REVIEW OF SYSTEMS: Negative except for above in HPI. PHYSICAL EXAMINATION: VITAL SIGNS: Temperature 98.2, pulse 71, respirations 16, blood pressure 124/62 and oxygen saturation 94% on room air. GENERAL: Alert and oriented x 3 female, lying in bed comfortably, in no acute distress, cooperative and pleasant. HEENT: Normocephalic and atraumatic. Anicteric. No thrush. Oral mucosa moist. NECK: Supple. No JVD. LUNGS: Clear bilaterally. No wheezing. HEART: S1 and S2. No gallops or murmurs. ABDOMEN: Soft, nontender and nondistended. No rebound and no guarding. FLANK: No CVA tenderness. BACK: Reveals some curvature. EXTREMITIES: No edema, no cyanosis, no clubbing. PSYCHIATRIC: Cooperative. Appropriate mood and affect. DERMATOLOGICAL: Warm and dry. No generalized rash. MUSCULOSKELETAL: No joint swelling. LABORATORY DATA: WBC 4.7, hemoglobin 11.5, hematocrit 34.3 and platelets 192. Sodium 142, potassium 3.8, chloride 106, bicarbonate 24, BUN 20, creatinine 0.9, glucose 99, lactate 1.6, calcium 8.8 and magnesium 1.7. LFTs within normal limits. Pro-BNP 238. UA shows greater than 40 wbc's, leukocyte esterase moderate. Blood cultures on 05/12/2019 positive for gram-negative rods. ID and DENISE pending at this time. On 05/12/2019, urine culture positive for probable E. coli ESBL. IMAGING DATA: CT abdomen and pelvis shows mild left hydroureteronephrosis, ureteral calculus is not identified, consideration include recently passed calculus or nonradiopaque calculus or ascending urinary tract infection, bilateral urinary cyst. Chest x-ray shows no acute cardiopulmonary process. IMPRESSION: 1. Sepsis from gram negative bacteremia 2. Fever. resolved 3. Gram-negative bacteremia.source likely 4. Escherichia coli extended spectrum beta-lactamase urinary tract infection. 5. Mild lt hydroureteronephrosis 6. Renal cyst. 7. Gastroesophageal reflux disease. 8. Sacroiliitis, ileitis. RECOMMENDATIONS: 1. Continue meropenem. 2. Follow up blood culture results. 3. Continue supportive care. 4. Follow up labs in a.m. Discussed with granddaughter at bedside. Thank you for allowing me to participate in this patient's care. If you have any questions, do not hesitate to contact me. JULIEN DHILLON MD DR: SONU/candice JOB#: [id number] / [id number] ZACK
[2019-05-16 03:00] VITALS: BP 145/58
[2019-05-16] MEDS: MEROPENEM 500 MG in IV NORMAL SALINE 50ML 50 ML IV SCH (05:46)
[2019-05-16 07:00] VITALS: BP 109/62
--- NOTE | 2019-05-16 08:13 | PDOC ---
PROGRESS NOTES Subjective Subjective Patient without complaint. Objective Objective Vital Signs Date Time Temp Pulse Resp B/P (MAP) Pulse Ox O2 Delivery O2 Flow Rate FiO2 05/16/19 03:00 98.1 67 16 145/58 (87) 96 Room Air 98.1 Intake and Output 05/16/19 07:00 Intake Total 1100 ml Balance 1100 ml Intake Oral 1000 ml IV Total 100 ml # Voids 3 Physical Exam Abdomen: Normal bowel sounds, Soft, No tenderness Heart: Regular rate Extremities: No edema General: Alert, Oriented X3, No acute distress Lungs: Clear to auscultation Assessment Assessment Problems Medical Problems: (1) Hypomagnesemia Status: Acute (2) Pyelonephritis Status: Acute Plan Plan of Care 1. Pyelonephritis with bacteremia - now on Meropenem per ID, continue present tx. Comment Review of Relevant I have reviewed the following items yoselin (where applicable) has been applied. Labs Microbiology 05/12/19 Blood Culture - Final, Complete 05/12/19 Blood Culture Result 1 (DNEISE) - Final, Complete 05/12/19 Antimicrobic Susceptibility - Final, Complete 05/12/19 Urine Culture - Final, Complete 05/12/19 Urine Culture Result 1 (DENISE) - Final, Complete 05/12/19 Antimicrobic Susceptibility - Final, Complete Medications Current Medications Sodium Chloride 1,000 ml @ 1,000 mls/hr 1X ONCE IV Last administered on 05/12/19at 02:47; Start 05/12/19 at 02:30; Stop 05/12/19 at 03:29; Status DC Acetaminophen (Tylenol) 500 mg 1X ONCE PO Last administered on 05/12/19at 02:47; Start 05/12/19 at 02:30; Stop 05/12/19 at 02:32; Status DC Ceftriaxone Sodium (Rocephin) 1 gm 1X ONCE IVP Last administered on 05/12/19at 03:45; Start 05/12/19 at 03:30; Stop 05/12/19 at 03:31; Status DC Fentanyl Citrate (Fentanyl 2ml Vial) 50 mcg 1X ONCE IV Last administered on 05/12/19at 03:30; Start 05/12/19 at 03:30; Stop 05/12/19 at 03:31; Status DC Ondansetron HCl (Zofran) 4 mg PRN Q8HRS PRN IV NAUSEA/VOMITING; Start 05/12/19 at 03:45; Stop 05/13/19 at 03:44; Status DC Fentanyl Citrate (Fentanyl 2ml Vial) 50 mcg PRN Q2HR PRN IV PAIN Last administered on 05/12/19at 17:51; Start 05/12/19 at 03:45; Stop 05/15/19 at 07:00; Status DC Acetaminophen (Tylenol) 650 mg PRN Q4HRS PRN PO FEVER Last administered on 05/12/19at 22:09; Start 05/12/19 at 03:45; Stop 05/13/19 at 03:44; Status DC Magnesium Sulfate 50 ml @ 25 mls/hr 1X ONCE IV Last administered on 05/12/19at 06:16; Start 05/12/19 at 04:15; Stop 05/12/19 at 06:14; Status DC Cyclobenzaprine HCl (Flexeril) 10 mg PRN Q6HRS PRN PO tension headache; Start 05/12/19 at 10:00; Stop 05/15/19 at 15:02; Status DC Tramadol HCl (Ultram) 50 mg PRN Q6HRS PRN PO MODERATE PAIN Last administered on 05/12/19at 14:55; Start 05/12/19 at 14:00 Enoxaparin Sodium (Lovenox 40mg Syringe) 40 mg Q24H SQ Last administered on 05/15/19at 17:13; Start 05/12/19 at 15:00 Ceftriaxone Sodium (Rocephin) 1 gm Q24H IVP Last administered on 05/14/19at 08:30; Start 05/13/19 at 08:00; Stop 05/14/19 at 20:23; Status DC Levofloxacin/ Dextrose 50 ml @ 50 mls/hr Q24H IV Last administered on 05/13/19at 14:52; Start 05/12/19 at 15:00; Stop 05/13/19 at 14:55; Status DC Ibuprofen (Motrin) 600 mg PRN Q6HRS PRN PO INFLAMMATION Last administered on 05/14/19at 08:29; Start 05/12/19 at 22:30 Acetaminophen (Tylenol) 1,000 mg PRN Q6HRS PRN PO HEADACHE/FEVER; Start 05/13/19 at 14:00 Levofloxacin/ Dextrose 150 ml @ 100 mls/hr Q48H IV Last administered on 05/14/19at 10:46; Start 05/14/19 at 10:00; Stop 05/14/19 at 20:23; Status DC Lactobacillus Rhamnosus (Culturelle) 1 cap BID PO Last administered on at 20:28; Start 05/13/19 at 21:00 Cyclobenzaprine HCl (Flexeril) 10 mg PRN Q6HRS PRN PO headache; Start 05/14/19 at 10:45 Al Hydroxide/Mg Hydroxide (Mylanta Plus Xs) 30 ml PRN Q2HR PRN PO HEARTBURN / GAS Last administered on 05/15/19at 23:40; Start 05/14/19 at 10:45 Meropenem 500 mg/ Sodium Chloride 50 ml @ 100 mls/hr Q6HRS IV Last administered on 05/16/19at 05:46; Start 05/15/19 at 00:00 Vitals/I & O Vital Sign - Last 24 Hours 05/15/19 05/15/19 05/15/19 05/15/19 11:00 15:14 15:16 19:00 Temp 98.1 97.7 97.7 98.1 98.1 97.7 97.7 98.1 Pulse 75 66 66 85 Resp 16 14 14 16 B/P (MAP) 119/67 (84) 113/47 (69) 113/47 (69) 117/40 (65) Pulse Ox 98 96 96 96 O2 Delivery Room Air Room Air Room Air Room Air 05/15/19 05/16/19 23:00 03:00 Temp 98.0 98.1 98.0 98.1 Pulse 77 67 Resp 18 16 B/P (MAP) 128/57 (80) 145/58 (87) Pulse Ox 96 96 O2 Delivery Room Air Room Air Intake and Output 05/15/19 05/15/19 05/16/19 15:00 23:00 07:00 Intake Total 800 ml 250 ml 50 ml Balance 800 ml 250 ml 50 ml SIXTO ROSENTHAL MD May 16, 2019 08:13
[2019-05-16 08:34] LABS: BASO % 1 % (0-3); EOS # 0.2 x10^3/uL (0.0-0.7); EOS % 4 % (0-3); HEMATOCRIT 37.8 % (36.0-47.0); HEMOGLOBIN 12.9 g/dL (12.0-15.5); LYMPH # 2.1 x10^3/uL (1.0-4.8); LYMPH % 40 % (24-48); MEAN CORPUSCULAR HEMOGLOBIN 32 pg (25-35); MEAN CORPUSCULAR HGB CONC 34 g/dL (31-37); MEAN CORPUSCULAR VOLUME 94 fL (79-100); MONO # 0.3 x10^3/uL (0.0-1.1); MONO % 6 % (0-9); NEUT # 2.5 x10^3/uL (1.8-7.7); NEUT % 49 % (31-73); PLATELET COUNT 257 x10^3/uL (140-400); RED BLOOD COUNT 4.05 x10^6/uL (3.50-5.40); RED CELL DISTRIBUTION WIDTH 13.2 % (11.5-14.5); WHITE BLOOD COUNT 5.1 x10^3/uL (4.0-11.0)
--- NOTE | 2019-05-16 08:42 | NUR ---
SW following pt. ID following pt. No SW needs noted at this time. Will continue to follow pending dc needs.
[2019-05-16 08:50] LABS: ALBUMIN 3.4 g/dL (3.4-5.0); ALBUMIN/GLOBULIN RATIO 0.8 (1.0-1.7); CALCIUM 9.6 mg/dL (8.5-10.1); CREATININE 0.9 mg/dL (0.6-1.0); GFR 61.9; TOTAL BILIRUBIN 0.4 mg/dL (0.2-1.0); TOTAL PROTEIN 7.6 g/dL (6.4-8.2)
--- NOTE | 2019-05-16 08:58 | PDOC ---
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 Vital Signs: Vital Signs Vital Signs Date Time Temp Pulse Resp B/P (MAP) Pulse Ox O2 Delivery O2 Flow Rate FiO2 05/16/19 07:00 82 18 109/62 (78) 100 Room Air 05/16/19 03:00 98.1 98.1 Physical Exam: PHYSICAL EXAM GENERAL: Alert and oriented x 3 female, lying in bed comfortably, in no acute distress, cooperative and pleasant. HEENT: Normocephalic and atraumatic. Anicteric. No thrush. Oral mucosa moist. NECK: Supple. No JVD. LUNGS: Clear bilaterally. No wheezing. HEART: S1 and S2. No gallops or murmurs. ABDOMEN: Soft, nontender and nondistended. No rebound and no guarding. FLANK: No CVA tenderness. BACK: Reveals some curvature. EXTREMITIES: No edema, no cyanosis, no clubbing. PSYCHIATRIC: Cooperative. Appropriate mood and affect. DERMATOLOGICAL: Warm and dry. No generalized rash. MUSCULOSKELETAL: No joint swelling. Medications: Inpatient Meds: Current Medications Medications (Trade) Dose Ordered Sig/Carmina Start Time Stop Time Status Last Admin Dose Admin Acetaminophen (Tylenol) 1,000 mg PRN Q6HRS PRN 05/13/19 14:00 Al Hydroxide/Mg Hydroxide (Mylanta Plus Xs) 30 ml PRN Q2HR PRN 05/14/19 10:45 05/15/19 23:40 30 ML Ceftriaxone Sodium (Rocephin) 1 gm Q24H 05/13/19 08:00 05/14/19 20:23 DC 05/14/19 08:30 1 GM Cyclobenzaprine HCl (Flexeril) 10 mg PRN Q6HRS PRN 05/14/19 10:45 Enoxaparin Sodium (Lovenox 40mg Syringe) 40 mg Q24H 05/12/19 15:00 05/15/19 17:13 40 MG Fentanyl Citrate (Fentanyl 2ml Vial) 50 mcg PRN Q2HR PRN 05/12/19 03:45 05/15/19 07:00 ME 05/12/19 17:51 50 MCG Ibuprofen (Motrin) 600 mg PRN Q6HRS PRN 05/12/19 22:30 05/14/19 08:29 600 MG Lactobacillus Rhamnosus (Culturelle) 1 cap BID 05/13/19 21:00 05/15/19 20:28 1 CAP Levofloxacin/ Dextrose 150 ml @ 100 mls/hr Q48H 05/14/19 10:00 05/14/19 20:23 DC 05/14/19 10:46 100 MLS/HR Magnesium Sulfate 50 ml @ 25 mls/hr 1X ONCE 05/12/19 04:15 05/12/19 06:14 DC 05/12/19 06:16 25 MLS/HR Meropenem 500 mg/ Sodium Chloride 50 ml @ 100 mls/hr Q6HRS 05/15/19 00:00 05/16/19 05:46 100 MLS/HR Ondansetron HCl (Zofran) 4 mg PRN Q8HRS PRN 05/12/19 03:45 05/13/19 03:44 DC Sodium Chloride 1,000 ml @ 1,000 mls/hr 1X ONCE 05/12/19 02:30 05/12/19 03:29 DC 05/12/19 02:47 1,000 MLS/HR Tramadol HCl (Ultram) 50 mg PRN Q6HRS PRN 05/12/19 14:00 05/12/19 14:55 50 MG Labs: Lab Laboratory Tests Test 05/16/19 07:45 White Blood Count 5.1 x10^3/uL (4.0-11.0) Red Blood Count 4.05 x10^6/uL (3.50-5.40) Hemoglobin 12.9 g/dL (12.0-15.5) Hematocrit 37.8 % (36.0-47.0) Mean Corpuscular Volume 94 fL (79-100) Mean Corpuscular Hemoglobin 32 pg (25-35) Mean Corpuscular Hemoglobin Concent 34 g/dL (31-37) Red Cell Distribution Width 13.2 % (11.5-14.5) Platelet Count 257 x10^3/uL (140-400) Neutrophils (%) (Auto) 49 % (31-73) Lymphocytes (%) (Auto) 40 % (24-48) Monocytes (%) (Auto) 6 % (0-9) Eosinophils (%) (Auto) 4 % (0-3) Basophils (%) (Auto) 1 % (0-3) Neutrophils # (Auto) 2.5 x10^3/uL (1.8-7.7) Lymphocytes # (Auto) 2.1 x10^3/uL (1.0-4.8) Monocytes # (Auto) 0.3 x10^3/uL (0.0-1.1) Eosinophils # (Auto) 0.2 x10^3/uL (0.0-0.7) Basophils # (Auto) 0.0 x10^3/uL (0.0-0.2) Sodium Level 143 mmol/L (136-145) Potassium Level 4.0 mmol/L (3.5-5.1) Chloride Level 106 mmol/L (98-107) Carbon Dioxide Level 26 mmol/L (21-32) Anion Gap 11 (6-14) Blood Urea Nitrogen 16 mg/dL (7-20) Creatinine 0.9 mg/dL (0.6-1.0) Estimated GFR (Cockcroft-Gault) 61.9 BUN/Creatinine Ratio 18 (6-20) Glucose Level 119 mg/dL (70-99) Calcium Level 9.6 mg/dL (8.5-10.1) Total Bilirubin 0.4 mg/dL (0.2-1.0) Aspartate Amino Transf (AST/SGOT) 21 U/L (15-37) Alanine Aminotransferase (ALT/SGPT) 25 U/L (14-59) Alkaline Phosphatase 81 U/L (46-116) Total Protein 7.6 g/dL (6.4-8.2) Albumin 3.4 g/dL (3.4-5.0) Albumin/Globulin Ratio 0.8 (1.0-1.7) Objective: Assessment: 1. Sepsis from ESBL E Coli bacteremia POA 2. Fever. resolved 3. Gram-negative bacteremia.source likely 4. Escherichia coli extended spectrum beta-lactamase urinary tract infection. 5. Mild lt hydroureteronephrosis 6. Renal cyst. 7. Gastroesophageal reflux disease. 8. Sacroiliitis, ileitis. Plan: Plan of Care ok to dc from id standpoint dc merrem start invanz, first dose here midline s/e of meds and midline discussed S/w to assist for dc medications f/u in [facility] in may 31 3;15 pm [phone] Discussed with daughter at bedside D/W JULIEN ARELLANO MD May 16, 2019 08:58
[2019-05-16] MEDS: LACTOBACILLUS RHAMNOSUS GG 1 CAPSULE. PO SCH (09:03)
[2019-05-16] MEDS ORDERED: ERTAPENEM 1GM IVPB (GENERIC) 50 ML IV ONE ×2 (09:15)
--- NOTE | 2019-05-16 10:32 | NUR ---
YANNA consulted for [facility] IV abx. YANNA phoned and faxed orders to [facility]. Awaiting on benefits. Will continue to follow.
[2019-05-16 10:54] VITALS: BP 123/71
--- NOTE | 2019-05-16 11:16 | NUR ---
Allergies and reactions penicillin INR 1.1 BUN 16 Cr 0.9 Platelets 257 Blood culture done yes blood culture results E. 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
--- NOTE | 2019-05-16 11:37 | NUR ---
Procedure: Following complete explanation of the Midline procedure including the indications, risks, and potential complications, informed consent was obtained. The possibility for infection was discussed along with signs, symptoms, and prevention. All the questions were answered. Written and verbal patient education was provided. Hand hygiene performed. Standardized central line checklist was utilized. The patient was placed in the supine position, the arm was prepped with chlorhexidine and patient draped with maximum sterile barrier. 2.5 mL 1% lidocaine was infiltrated into the skin to provide local anesthesia. A thorough assessment of right upper extremity completed. Using real-time ultrasound guidance and standardized micro puncture set, the basilic vein was punctured and a peel away sheath was placed using the modified Seldinger technique. A tip location device was used to ensure adequate catheter placement. The catheter was secured using a securement device and an antimicrobial patch was applied directly on the insertion site followed by a transparent dressing. All ports withdraw blood and flush without resistance. Patient tolerated the procedure without apparent complication(s). Single Lumen Power Midline placement successful and uncomplicated. Complications: None Trimmed at 14cm with 1cm visible.
--- NOTE | 2019-05-16 14:25 | NUR ---
YANNA following pt. Pt has 100% coverage for home infusion and [facility] has accepted pt as well. Magan from [facility] will come in for bedside teach. RN to page physician for dc/home health orders. Discussed with pt's granddaughter in room.
[2019-05-16 15:05] VITALS: BP 120/69
[2019-05-16] MEDS ORDERED: ERTA1VIA IV (15:13)
[2019-05-16] MEDS ORDERED: LACT1CAP19 PO (15:13)
--- NOTE | 2019-05-16 16:28 | NUR ---
pt discharged home with home health. will have daily infusions of ertapenem. pt discharged with single lumen midline in right upper arm. did c/o some numbness and tingling R hand prior to DC. pg to Dr. Ortega who agrees to proceed w/ discharge and have HH evaluate tomorrow when they visit. pt family v/u. pt stable upon dc.
--- NOTE | 2019-05-17 13:49 | DS ---
DATE OF DISCHARGE: 05/16/2019 CHIEF COMPLAINT: Flank pain, fever, dysuria. HISTORY OF PRESENT ILLNESS: The patient is a 69-year-old female who came to the Emergency Room with the above complaint. She had recently been treated for a presumed urinary tract infection as an outpatient with Bactrim. She had apparently finished that prescription, but her symptoms worsened, and so she came to the Emergency Room. Evaluation there showed urinalysis with greater than [address] of the abdomen and pelvis showed mild left hydroureteronephrosis. The patient was diagnosed with sepsis and pyelonephritis. She was started on IV antibiotics and admitted for further care. HOSPITAL COURSE: The patient was seen in consultation by Infectious Disease. She had an intermittent fever at first, but this resolved and she remained afebrile during the rest of her hospital stay. She was treated with Rocephin and IV Levaquin. Blood and urine cultures were eventually positive for E. coli. This was resistant to multiple antibiotics and it was felt that this was ESBL. Infectious Disease changed the patient to meropenem. She continued to improve. Infectious Disease recommended 14 days of treatment with broad-spectrum antibiotic. Her insurance approved her for home IV antibiotics. She received a midline IV and was discharged home on Invanz 1 gram IV daily. FINAL DIAGNOSIS: Sepsis with pyelonephritis. DISCHARGE MEDICATIONS: Invanz 1 gram IV daily. DISCHARGE INSTRUCTIONS: Followup is with Infectious Disease in 2 weeks. Follow up with Dr. Ho as needed. SIXTO ROSENTHAL MD DR: TUSHAR/candice JOB#: [id number] / [id number]
== END 2019-05-16 16:32 | disposition home health service (06) | DRG 872 ==
LOC: ER 01:57 → ED HOLD 03:20 → 5 SOUTH 04:31
PROVIDERS: ADMIT Family Medicine; ATTEND Family Medicine
DX: A41.51 Sepsis due to Escherichia coli [E. coli] (principal); N13.6 Pyonephrosis; E83.42 Hypomagnesemia; Z16.12 Extended spectrum beta lactamase (ESBL) resistance; N28.1 Cyst of kidney, acquired; M46.1 Sacroiliitis, not elsewhere classified; K52.9 Noninfective gastroenteritis and colitis, unspecified; K21.9 Gastro-esophageal reflux disease without esophagitis; G44.209 Tension-type headache, unspecified, not intractable; Z79.899 Other long term (current) drug therapy
CPT/HCPCS: 36415; 36569; 71045; 74176; 80053; 81001; 82553; 83605; 83690; 83735; 83880; 84484; 85025; 85610; 85730; 87040; 87077; 87086; 87186; 87205; 93005; 96374; 96375; J0696; J1335; J1650; J1956; J2185; J3010; J3475; J7030; 99285-25

== ENCOUNTER 2019-05-24 13:18 | Emergency (ER) | payer OTHER, MEDICAID ==
[~2019-05-24] VITALS: Ht 152.4 cm; Wt 75.3 kg
[~2019-05-24 13:18] MED LIST: ERTA1VIA IV; LACT1CAP19 PO
[2019-05-24 13:55] VITALS: BP 114/65
[2019-05-24] MEDS ORDERED: ALTEPLASE 1MG SYRINGE. INT CAT ONE (15:00)
--- NOTE | 2019-05-24 15:42 | PHYS DOC ---
Past Medical History Past Medical History: No Pertinent History, UTI Past Surgical History: No Surgical History Alcohol Use: None Drug Use: None Adult General Chief Complaint Chief Complaint: OTHER COMPLAINTS HPI HPI 69-year-old female presenting to the emergency department today after her port was unable to be accessed. I had order elliott cath to help access the line. Pt left prior to being seen. Current Medications Current Medications Current Medications Medications (Trade) Dose Ordered Sig/Carmina Start Time Stop Time Status Last Admin Dose Admin Alteplase, Recombinant (Cathflo For Central Catheter Clearance) 1 mg 1X ONCE 05/24/19 15:00 05/24/19 15:01 DC Allergies Allergies Allergies Coded Allergies Type Severity Reaction Last Updated Verified I S O L A T I O N *CONTACT* Allergy Unknown 05/15/19 Yes Penicillins Allergy Unknown 05/12/19 Yes Current Patient Data Vital Signs Vital Signs Date Time Temp Pulse Resp B/P (MAP) Pulse Ox O2 Delivery O2 Flow Rate FiO2 05/24/19 13:55 98.8 60 16 114/65 (81) 97 Room Air 98.8 EKG EKG [] Radiology/Procedures Radiology/Procedures [] Course & Med Decision Making Course & Med Decision Making Pertinent Labs and Imaging studies reviewed. (See chart for details) [] Dragon Disclaimer Dragon Disclaimer This electronic medical record was generated, in whole or in part, using a voice recognition dictation system. Departure Departure Referrals: NELIA NOONAN MD (PCP) CLIFF ADAMSON MD May 24, 2019 15:42
== END 2019-05-24 15:00 | disposition left against medical advice (07) ==
LOC: ER 13:18
DX: Z45.2 Encounter for adjustment and management of vascular access device (principal); Z88.0 Allergy status to penicillin; Z91.041 Radiographic dye allergy status; Z53.21 Procedure and treatment not carried out due to patient leaving prior to being seen by health care provider